=== PATIENT | male | born 1980 | race Caucasian/White ===

== ENCOUNTER 2017-11-10 17:58 | Emergency (ER) | payer MEDICARE, OTHER ==
[~2017-11-10] VITALS: Ht 177.8 cm; Wt 122.5 kg
[~2017-11-10 17:58] MED LIST: CETI10CA PO; CLON1TAB2 PO; DULO60CA6 PO; GEODON; LAMO25TA4 PO; LEVOTHYROXINE; NAPR-243 PO; TRM50T PO
--- OUTSIDE RECORDS SUMMARY | 2017-11-10 18:03 | XMS REPORT | Referral Summary ---
Author Organization Unknown Address Unknown Phone Unavailable Care Team Providers Care Aurist Name Role Phone Abebe Bentley PCP Encounter VC Date(s): 07/13/14 - 07/13/14 [facility], [facility] [address] [place], [place] [address] Discharge Diagnosis: Allergic reaction of correct medicinal substance properly administered Discharge Disposition: Home or Self Care Attending Physician: Kailee Herrera APRN Admitting Physician: Kailee Herrera APRN Vital Signs Most recent to 1 oldest [Reference Range]: Temperature Tympanic 35.6 degC [36.6-38.1 degC] *LOW* (07/13/14 11:03 AM) Peripheral Pulse 82 bpm Rate [60-100 bpm] (07/13/14 11:03 AM) Most recent to 1 oldest [Reference Range]: SpO2 98 % (07/13/14 11:03 AM) Problem List Condition Effective Dates Status Health Status Informant Allergies(Confirmed) Active Bipolar Active disorder(Confirmed) Depression(Confirmed Active ) Thyroid Active disease(Confirmed) GERD Active (gastroesophageal reflux disease)(Confirmed) Hypothyroidism Active (disorder)(Confirmed ) Disabled due to Active Mental health issues(Confirmed) Migraine(Confirmed) Active 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) Seborrheic Active dermatitis of scalp(Confirmed) Tobacco Active patient user(Confirmed) Allergies, Adverse Reactions, Alerts Substance Reaction Severity Status amoxicillin Active cephalexin Active Diflucan Active Latex Pruritus Mild Active penicillin Pruritus Mild Active Medications clobetasol 0.05% topical solution 1 jimmie, Topical, BID, # 50 mL, 2 Refill(s), Pharmacy: [facility] [id number] Start Date: 06/30/14 Status: Ordered clobetasol 0.05% topical solution 1 jimmie, Topical, BID, # 50 mL, 2 Refill(s), Pharmacy: [facility] Start Date: 04/01/14 Status: Ordered Imitrex 50 mg oral tablet 1 tabs, Oral, Daily, as needed for migraine headache, may repeat dose after 2 hours up to a maximum of 200 mg in 24 hours, # 9 tabs, 0 Refill(s) Special Instructions: may repeat dose after 2 hours up to a maximum of 200 mg in 24 hours Start Date: 09/04/13 Status: Ordered LaMICtal 200 mg oral tablet tabs, Oral, Daily, 0 Refill(s) Start Date: 09/04/13 Status: Ordered LamISIL 250 mg oral tablet 1 tabs, Oral, Daily, X 14 days, # 14 tabs, 0 Refill(s), Pharmacy: [facility] [id number], 1 tabs Oral Daily,x14 days Start Date: 07/13/14 Stop Date: 07/27/14 Status: Ordered Lotrimin AF 1% topical cream 1 jimmie, Topical, BID, # 15 g, 0 Refill(s) Start Date: 07/10/14 Stop Date: 07/22/14 Status: Ordered montelukast 10 mg oral tablet See Instructions, TAKE ONE TABLET BY MOUTH ONCE DAILY IN THE EVENING, # 30 tabs , 4 Refill(s), eRx: [facility] [id number], TAKE ONE TABLET BY MOUTH ONCE DAILY IN THE EVENING Special Instructions: TAKE ONE TABLET BY MOUTH ONCE DAILY IN THE EVENING Start Date: 07/09/14 Status: Ordered Nizoral 2% topical shampoo 1 jimmie, Topical, 2x/Wk, # 120 mL, 1 Refill(s), Pharmacy: [facility] Start Date: 02/13/14 Status: Ordered nystatin-triamcinolone 100,000 units/g-0.1% topical cream 1 jimmie, Topical, TID, # 30 g, 0 Refill(s), Pharmacy: [facility] [id number] Start Date: 06/30/14 Status: Ordered omeprazole 40 mg oral delayed release capsule See Instructions, TAKE ONE CAPSULE BEFORE BREAKFAST DAILY FOR STOMACH, # 30 caps , 5 Refill(s), Pharmacy: [facility] [address], TAKE ONE CAPSULE BEFORE BREAKFAST DAILY FOR STOMACH Special Instructions: TAKE ONE CAPSULE BEFORE BREAKFAST DAILY FOR STOMACH Start Date: 05/13/14 Status: Ordered Omnaris 50 mcg/inh nasal spray 2 sprays, Nasal, Daily, # 12.5 g, 0 Refill(s) Start Date: 09/04/13 Status: Ordered prazosin 1 mg oral capsule 1 caps, Oral, TID, # 270 caps, 0 Refill(s) Start Date: 09/04/13 Status: Ordered Pristiq 100 mg oral tablet, extended release 1 tabs, Oral, Daily, # 30 tabs, 0 Refill(s) Start Date: 09/04/13 Status: Ordered Topamax 50 mg oral tablet See Instructions, TAKE ONE TABLET BY MOUTH DAILY, # 60 tabs, 1 Refill(s), Pharmacy: [facility]5, TAKE ONE TABLET BY MOUTH DAILY Special Instructions: TAKE ONE TABLET BY MOUTH DAILY Start Date: 06/18/14 Status: Ordered Results No data available for this section Immunizations No data available for this section Procedures Procedure Date Related Diagnosis Body Site RT. Inguinal Hernia repair 2011 Cholecystectomy 2009 Social History Social History Type Response Smoking Status Current every day smoker; Type: E-Cigarette Assessment and Plan Extracted from: Title: Office Visit Note Author: Kailee Herrera CARDIAC NURSE Date: 07/13/14 Assessment/Plan 1.Allergic reaction of correct medicinal substance properly administered Discussed with Dr. Bentley who confirmed that the new rash is a medicine reaction. He will take Lamisil daily for two weeks and will also take a medrol dose pack and can continue Benadryl. 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 I told him and his to check with the vet about the possibility of animals passing this fungus to them. Ordered: Office Visit Level 4 Est 62465 Orders: terbinafine, 1 tabs, Oral, Daily, X 14 days, # 14 tabs, 0 Refill(s), Pharmacy: [facility] 7489, 1 tabs Oral Daily,x14 days
--- OUTSIDE RECORDS SUMMARY | 2017-11-10 18:03 | XMS REPORT | Referral Summary ---
Author Author [facility] Organization [facility] Address Unknown Phone Unavailable Care Team Providers Care Nuclear Equipment Design Engineer Name Role Phone Abebe Bentley PCP Encounter [facility] [id number] Date(s): 09/12/14 - 09/12/14 [facility] [address] [place], [place] [address] Discharge Diagnosis: AP (abdominal pain) Final: ABDOMINAL PAIN, OTHER SPECIFIED SITE; MULTIPLE SITES Final: CALCULUS OF KIDNEY Final: TOBACCO USE DISORDER Discharge Disposition: 01-Home or Self Care Attending Physician: Anu Dumont MD Admitting Physician: Anu Dumont MD Vital Signs Most recent to 1 oldest [Reference Range]: Temperature Oral 36.9 degC [35.8-37.3 degC] (09/12/14 8:02 AM) Peripheral Pulse 96 bpm Rate [60-100 bpm] (09/12/14 11:05 AM) Respiratory Rate 16 br/min [14-20 br/min] (09/12/14 11:05 AM) Blood Pressure 128/3 mmHg [90-140/60-90 mmHg] (09/12/14 11:05 AM) SpO2 98 % (09/12/14 11:05 AM) Problem List Condition Effective Dates Status Health Status Informant Allergies(Confirmed) Active Bipolar Active disorder(Confirmed) Depression(Confirmed Active ) Thyroid Active disease(Confirmed) GERD Active (gastroesophageal reflux disease)(Confirmed) Hypothyroidism Active (disorder)(Confirmed ) Disabled due to Active Mental health issues(Confirmed) Migraine(Confirmed) Active Obesity(Confirmed) Active patient 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) Seborrheic Active dermatitis of scalp(Confirmed) Tobacco Active patient user(Confirmed) Allergies, Adverse Reactions, Alerts Substance Reaction Severity Status amoxicillin Active cephalexin Active Diflucan Active Latex Pruritus Mild Active penicillin Pruritus Mild Active Medications Benadryl 0 Refill(s) Start Date: 09/12/14 Status: Ordered clobetasol 0.05% topical solution 1 jimmie, Topical, BID, # 50 mL, 2 Refill(s), Pharmacy: [facility] [id number] Start Date: 06/30/14 Status: Ordered clobetasol 0.05% topical solution 1 jimmie, Topical, BID, # 50 mL, 2 Refill(s), Pharmacy: [facility] Start Date: 04/01/14 Status: Ordered LaMICtal 200 mg oral tablet tabs, Oral, Daily, 0 Refill(s) Start Date: 09/04/13 Status: Ordered montelukast 10 mg oral tablet See Instructions, TAKE ONE TABLET BY MOUTH ONCE DAILY IN THE EVENING, # 30 tabs , 2 Refill(s), eRx: [facility] [id number], TAKE ONE TABLET BY MOUTH ONCE DAILY IN THE EVENING Start Date: 11/16/14 Status: Ordered Nizoral 2% topical shampoo 1 jimmie, Topical, 2x/Wk, # 120 mL, 1 Refill(s), Pharmacy: [facility] Start Date: 02/13/14 Status: Ordered omeprazole 40 mg oral delayed release capsule See Instructions, TAKE ONE CAPSULE BY MOUTH ONCE DAILY BEFORE BREAKFAST FOR STOMACH, # 30 unknown unit, 2 Refill(s), eRx: [facility] [id number] , TAKE ONE CAPSULE BY MOUTH ONCE DAILY BEFORE BREAKFAST FOR STOMACH Start Date: 10/27/14 Status: Ordered Pepcid 20 mg oral tablet 20 mg 1 tabs, Oral, BID, # 60 tabs, 0 Refill(s) Start Date: 09/12/14 Status: Ordered prazosin 1 mg oral capsule 1 caps, Oral, TID, # 270 caps, 0 Refill(s) Start Date: 09/04/13 Status: Ordered Pristiq 100 mg oral tablet, extended release 1 tabs, Oral, Daily, # 30 tabs, 0 Refill(s) Start Date: 09/04/13 Status: Ordered topiramate 50 mg oral tablet See Instructions, TAKE ONE TABLET BY MOUTH TWICE DAILY, # 60 tabs, 2 Refill(s), eRx: [facility] [id number], TAKE ONE TABLET BY MOUTH TWICE DAILY Start Date: 11/02/14 Status: Ordered Results Hematology Most recent to 1 oldest [Reference Range]: WBC [4.8-10.8 8.5 10*3/uL 10*3/uL] (09/12/14 8:49 AM) RBC [4.60-6.20 5.09 10*6/uL 10*6/uL] (09/12/14 8:49 AM) Hgb [14.0-18.0 14.8 gm/dL gm/dL] (09/12/14 8:49 AM) Hct [42.0-52.0 %] 43.6 % (09/12/14 8:49 AM) MCV [82.0-99.0 fL] 85.7 fL (09/12/14 8:49 AM) MCH [27.0-32.0 pg] 29.1 pg (09/12/14 8:49 AM) MCHC [32.0-36.0 33.9 gm/dL gm/dL] (09/12/14 8:49 AM) RDW [11.5-14.5 %] 13.6 % (09/12/14 8:49 AM) Platelet [150-400 212 10*3/uL 10*3/uL] (09/12/14 8:49 AM) MPV [9.4-12.3 fL] 10.5 fL (09/12/14 8:49 AM) Immature 0.2 % Granulocytes (09/12/14 8:49 AM) [0.0-1.0 %] Neutrophils [51-75 51 % %] (09/12/14 8:49 AM) Lymphocytes [20-46 41 % %] (09/12/14 8:49 AM) Monocytes [4-11 %] 7 % (09/12/14 8:49 AM) Eosinophils [0-4 %] 1 % (09/12/14 8:49 AM) Basophils [0-2 %] 0 % (09/12/14 8:49 AM) Neutro Absolute 4.35 10*3 [1.90-7.00 10*3] (09/12/14 8:49 AM) Lymph Absolute 3.45 10*3 [0.80-3.30 10*3] *HI* (09/12/14 8:49 AM) Runnels Absolute 0.57 10*3 [0.30-1.00 10*3] (09/12/14 8:49 AM) Eos Absolute 0.08 10*3 [0.00-0.50 10*3] (09/12/14 8:49 AM) Baso Absolute 0.02 10*3 [0.00-0.20 10*3] (09/12/14 8:49 AM) Chemistry Most recent to 1 oldest [Reference Range]: Sodium Lvl [136-144 136 mEq/L mEq/L] (09/12/14 8:49 AM) Potassium Lvl 3.4 mEq/L [3.6-5.1 mEq/L] *LOW* (09/12/14 8:49 AM) Chloride [99-109 106 mEq/L mEq/L] (09/12/14 8:49 AM) CO2 [22-32 mEq/L] 21 mEq/L *LOW* (09/12/14 8:49 AM) AGAP [3-20] 9 (09/12/14 8:49 AM) BUN [4-20 mg/dL] 11 mg/dL (09/12/14 8:49 AM) Glucose Lvl [70-100 96 mg/dL mg/dL] (09/12/14 8:49 AM) Creatinine Lvl 1.15 mg/dL [0.64-1.27 mg/dL] (09/12/14 8:49 AM) eGFR [>60] >60 1 (09/12/14 8:49 AM) Calcium Lvl 9.4 mg/dL [8.6-10.0 mg/dL] (09/12/14 8:49 AM) Albumin Lvl [3.5-4.8 4.7 gm/dL gm/dL] (09/12/14 8:49 AM) Total Protein 7.7 gm/dL [6.1-7.9 gm/dL] (09/12/14 8:49 AM) Globulin [1.9-4.3 3.0 gm/dL gm/dL] (09/12/14 8:49 AM) ALT [17-63 U/L] 24 U/L (09/12/14 8:49 AM) AST [15-41 U/L] 26 U/L (09/12/14 8:49 AM) Alk Phos [26-104 72 U/L U/L] (09/12/14 8:49 AM) Bili Total [0.2-1.2 0.4 mg/dL 2 mg/dL] (09/12/14 8:49 AM) Lipase Lvl [8-48 30 U/L U/L] (09/12/14 8:49 AM) 1Result Comment: Multiply eGFR results by 1.21 for race. 2Result Comment: Naproxen, specifically the metabolite O-desmethylnaproxen, may cause spurious elevation in Total Bilirubin levels. Urinalysis Most recent to 1 oldest [Reference Range]: UA Color Lt Yellow (09/12/14 8:49 AM) UA Appear Clear (09/12/14 8:49 AM) UA pH [5.0-8.0] 7.0 (09/12/14 8:49 AM) UA Leuk Est Negative [Negative] (09/12/14 8:49 AM) UA Nitrite Negative [Negative] (09/12/14 8:49 AM) UA Protein Negative [Negative] (09/12/14 8:49 AM) UA Glucose Negative [Negative] (09/12/14 8:49 AM) UA Ketones Negative [Negative] (09/12/14 8:49 AM) UA Urobilinogen Negative [<1.0] (09/12/14 8:49 AM) UA Bili [Negative] Negative (09/12/14 8:49 AM) UA Blood [Negative] Negative (09/12/14 8:49 AM) UA Spec Grav 1.006 [1.003-1.030] (09/12/14 8:49 AM) Type Clean Catch (09/12/14 8:49 AM) Immunizations No data available for this section Procedures Procedure Date Related Diagnosis Body Site RT. Inguinal Hernia repair 2011 Cholecystectomy 2008 Social History Social History Type Response Smoking Status Current every day smoker; Type: E-Cigarette Assessment and Plan No data available for this section
--- OUTSIDE RECORDS SUMMARY | 2017-11-10 18:03 | XMS REPORT | Referral Summary ---
Author Author [facility] Organization [facility] Address Unknown Phone Unavailable Care Team Providers Care Environmental Services Assistant Name Role Phone Abebe Bentley PCP Encounter VC Date(s): 08/25/14 - 08/25/14 [facility] [address] [place] [address] [facility] Discharge Diagnosis: Pain of left calf Discharge Disposition: 01-Home or Self Care Attending Physician: Priya Ramirez Attending Physician: Provider, Immediate Care Admitting Physician: Provider, Immediate Care Vital Signs Most recent to 1 oldest [Reference Range]: Temperature Oral 36.8 degC [35.8-37.3 degC] (08/25/14 11:53 AM) Peripheral Pulse 91 bpm Rate [60-100 bpm] (08/25/14 11:53 AM) Blood Pressure 124/77 mmHg [90-140/60-90 mmHg] (08/25/14 11:53 AM) SpO2 96 % (08/25/14 11:53 AM) Problem List Condition Effective Dates Status Health Status Informant Allergies(Confirmed) Active Bipolar Active disorder(Confirmed) Depression(Confirmed Active ) Thyroid Active disease(Confirmed) GERD Active (gastroesophageal reflux disease)(Confirmed) Hypothyroidism Active (disorder)(Confirmed ) Disabled due to Active Mental health issues(Confirmed) Migraine(Confirmed) Active Obesity(Confirmed) Active patient 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) Seborrheic Active dermatitis of scalp(Confirmed) Tobacco Active patient user(Confirmed) Allergies, Adverse Reactions, Alerts Substance Reaction Severity Status amoxicillin Active cephalexin Active Diflucan Active Latex Pruritus Mild Active penicillin Pruritus Mild Active Medications Benadryl 0 Refill(s) Start Date: 09/12/14 Status: Ordered clobetasol 0.05% topical solution 1 jimmie, Topical, BID, # 50 mL, 2 Refill(s), Pharmacy: [facility] [id number] Start Date: 06/30/14 Status: Ordered clobetasol 0.05% topical solution 1 jimmie, Topical, BID, # 50 mL, 2 Refill(s), Pharmacy: [facility] Start Date: 04/01/14 Status: Ordered LaMICtal 200 mg oral tablet tabs, Oral, Daily, 0 Refill(s) Start Date: 09/04/13 Status: Ordered montelukast 10 mg oral tablet See Instructions, TAKE ONE TABLET BY MOUTH ONCE DAILY IN THE EVENING, # 30 tabs , 2 Refill(s), eRx: [facility] [address], TAKE ONE TABLET BY MOUTH ONCE DAILY IN THE EVENING Start Date: 11/16/14 Status: Ordered Nizoral 2% topical shampoo 1 jimmie, Topical, 2x/Wk, # 120 mL, 1 Refill(s), Pharmacy: [facility] Start Date: 02/13/14 Status: Ordered omeprazole 40 mg oral delayed release capsule See Instructions, TAKE ONE CAPSULE BY MOUTH ONCE DAILY BEFORE BREAKFAST FOR STOMACH, # 30 unknown unit, 2 Refill(s), eRx: [facility] [address] , TAKE ONE CAPSULE BY MOUTH ONCE [...] DAILY, # 60 tabs, 2 Refill(s), eRx: [facility] [address], TAKE ONE TABLET BY MOUTH TWICE DAILY Start Date: 11/02/14 Status: Ordered Results No data available for this section Immunizations No data available for this section Procedures Procedure Date Related Diagnosis Body Site RT. Inguinal Hernia repair 2012 Cholecystectomy 2009 Social History Social History Type Response Smoking Status Current every day smoker; Type: E-Cigarette Assessment and Plan Extracted from: Title: Office Visit Note Author: Priya Ramirez Date: 08/25/14 Assessment/Plan 1.Pain of left calf Instructed patient on medication, use, common side effects, and administration. Discussed proper OTC medication, including Tylenol or ibuprofen, for symptomatic relief. Discussed use of therapeutic techniques: PRICEMM therapy (protection, relative rest, ice, compression, elevation, medications, modalities) for symptomatic relief. Instructed patient if symptoms worsen or new symptoms arise to seek medical attention here or at the ER. If no improvement of symptoms follow up with PCP in 2-3 days. Patient voiced understanding and agreed with treatment plan. Patient dismissed in stable condition. Ordered: Office Visit Level 3 Est 80197 Orders: cyclobenzaprine, 5 mg 1 tabs, Oral, TID, X 7 days, # 21 tabs, 0 Refill (s), Pharmacy: [facility], 1 tabs Oral TID,x7 days predniSONE, 30 mg 3 tabs, Oral, Daily, X 5 days, # 15 tabs, 0 Refill(s), Pharmacy: [facility], 3 tabs Oral Daily,x5 days
--- OUTSIDE RECORDS SUMMARY | 2017-11-10 18:04 | XMS REPORT ---
Author Author RADHA ANGELES Organization [facility] Address [address] [place] [address] Care Team Providers Care Manager Global Communications Name Role Phone RADHA ANGELES Unavailable PROBLEMS Type Condition ICD9-CM Code NEW96-GU Code Onset Dates Condition Status SNOMED Code Problem Bipolar disorder, current episode mixed, mild F31.61 Active 012702240 Problem PTSD (post-traumatic stress disorder) F43.10 Active 16463984 ALLERGIES No Information ENCOUNTERS Encounter Location Date Diagnosis [place] [id number] [place] [phone] Sep, [place] [id number] [place] [address] Aug, Bipolar disorder, current episode mixed, mild F31.61 and PTSD (post-traumatic stress disorder) F43.10 [place] [address] [place] [id number] [place] [address] Jun, Bipolar disorder, current episode mixed, mild F31.61 and PTSD (post-traumatic stress disorder) F43.10 [place] [address] [address] [place] [address] Jun, Bipolar disorder, current episode mixed, mild F31.61 and PTSD (post-traumatic stress disorder) F43.10 [place] [address] [place] [address] Mar, Bipolar disorder, current episode mixed, mild F31.61 and PTSD (post-traumatic stress disorder) F43.10 [place] [address] [address] [place] [address] Mar, Bipolar disorder, current episode mixed, mild F31.61 and PTSD (post-traumatic stress disorder) F43.10 [facility] [address] [facility] [id number] [address] Mar, [facility] [address] [address] Mar, Bipolar disorder, current episode mixed, mild F31.61 and PTSD (post-traumatic stress disorder) F43.10 [facility] [address] [address] Dec, [facility] [address] [address] Dec, [facility] [address] [address] Dec, IMMUNIZATIONS No Known Immunizations SOCIAL HISTORY Never Assessed REASON FOR VISIT Follow-up Anger/Mood PLAN OF CARE Activity Details Follow Up prn Reason: Follow-up VITAL SIGNS MEDICATIONS Unknown Medications RESULTS No Results PROCEDURES Procedure Date Ordered Result Body Site [facility] VISIT MENTAL HEALTH ESTAB PT June 28, 2017 Psychotherapy, patient &/family, 45 minutes, established patient June 28, 2017 visit needs to be added to the same day medical June 28, 2017 INSTRUCTIONS MEDICATIONS ADMINISTERED No Known Medications MEDICAL (GENERAL) HISTORY Type Description Date Medical History several concussions, last one 2014 Medical History obesity Medical History hypothyroidism Medical History chronic pain Surgical History cholecystectomy Surgical History tonsillectomy Surgical History wisdom teeth extraction Surgical History hernia repair Surgical History left knee arthroscopy Hospitalization History [facility] for depression, SI 2001
--- OUTSIDE RECORDS SUMMARY | 2017-11-10 18:04 | XMS REPORT ---
Author Author PAULINA ILENE Organization [facility] Address [address] [place] [address] Care Team Providers Care End Finder Forming Department Name Role Phone VITALIYMARY KATE ILENE Unavailable PROBLEMS Type Condition ICD9-CM Code [id number] Code Onset Dates Condition Status SNOMED Code Problem Bipolar disorder, current episode mixed, mild F31.61 Active 940276983 Problem PTSD (post-traumatic stress disorder) F43.10 Active 33310657 ALLERGIES No Information ENCOUNTERS Encounter Location Date Diagnosis [facility] [address] [place] [id number] [place] [address] Sep, [facility] [address] [place] [id number] [place] [address] Aug, Bipolar disorder, current episode mixed, mild F31.61 and PTSD (post-traumatic stress disorder) F43.10 [facility] [address] [place] [id number] [place] [address] Jun, Bipolar disorder, current episode mixed, mild F31.61 and PTSD (post-traumatic stress disorder) F43.10 [place] [address] [place] [address] Jun, Bipolar disorder, current episode mixed, mild F31.61 and PTSD (post-traumatic stress disorder) F43.10 [facility] [address] [place] [address] Mar, Bipolar disorder, current episode mixed, mild F31.61 and PTSD (post-traumatic stress disorder) F43.10 [place] [address] [address] [place] [address] Mar, Bipolar disorder, current episode mixed, mild F31.61 and PTSD (post-traumatic stress disorder) F43.10 [place] [address] [place] [id number] [phone] Mar, [place] [address] [address] [phone] Mar, Bipolar disorder, current episode mixed, mild F31.61 and PTSD (post-traumatic stress disorder) F43.10 [place] [address] [address] Dec, [place] [address] [place] [id number] [address] Dec, [place] [address] [address] [place] [address] Dec, IMMUNIZATIONS No Known Immunizations SOCIAL HISTORY Never Assessed REASON FOR VISIT YESENIA Longo MA PLAN OF CARE Activity Details Follow Up 3 Months, prn Reason: VITAL SIGNS Weight 281 lbs 2017-06-28 Heart Rate 96 bpm 2017-06-28 Respiratory Rate 20 2017-06-28 Blood pressure systolic 118 mmHg 2017-06-28 Blood pressure diastolic 76 mmHg 2017-06-28 MEDICATIONS Medication Instructions Dosage Frequency Start Date End Date Duration Status Abilify 5 MG Orally Once a day 1 tablet 24h Mar, 30 days Not- Taking Omeprazole 40 MG Orally Once a day 1 capsule 24h Active Baclofen 10 mg Orally Once a day 1 tablet with food or milk 24h Active Levothyroxine Sodium 112 MCG Orally Once a day 1 tablet on an empty stomach in the morning 24h Not-Taking Lamictal 150 MG Orally Once a day 2 tablet 24h 30 days Active Imitrex 50 MG Orally Twice a day 1 tablet as needed 12h Active HydrOXYzine HCl 25 MG TAKE ONE TABLET BY MOUTH THREE TIMES DAILY NEEDED FOR ANXIETY 30 Not-Taking Ibuprofen 800 MG Orally Three times a day 1 tablet with food or milk as needed 8h Active Restoril 15 MG Orally Once a day 1 capsule at bedtime as needed 24h Mar Not-Taking Levocetirizine Dihydrochloride 5 MG Orally Once a day 1 tablet in the evening 24h Not-Taking Synthroid 150 MG Orally Once a day 1 tablet on an empty stomach in the morning 24h Active Singulair 10 MG Orally Once a day 1 tablet in the evening 24h Not- Taking Duloxetine HCl 60 MG Orally Once a day 1 capsule 24h 30 days Active RESULTS No Results PROCEDURES Procedure Date Ordered Result Body Site [facility] VISIT ESTABLISHED PATIENT June 28, 2017 [facility] Visit needs to be added with another visit on the same day June 28, 2017 INSTRUCTIONS MEDICATIONS ADMINISTERED No Known Medications MEDICAL (GENERAL) HISTORY Type Description Date Medical History several concussions, last one 2014 Medical History obesity Medical History hypothyroidism Medical History chronic pain Surgical History cholecystectomy Surgical History tonsillectomy Surgical History wisdom teeth extraction Surgical History hernia repair Surgical History left knee arthroscopy Hospitalization History [facility] for depression, SI 2001
--- OUTSIDE RECORDS SUMMARY | 2017-11-10 18:04 | XMS REPORT ---
Author Author PAULINA ILENE Organization [facility] Address [address] [place] [address] Care Team Providers Care Nursing Informatics Clinical Analyst Name Role Phone VITALIYLISA HARTMANNYLA Unavailable PROBLEMS Type Condition ICD9-CM Code DAT08-WH Code Onset Dates Condition Status SNOMED Code Problem Bipolar disorder, current episode mixed, mild F31.61 Active 906717928 Problem PTSD (post-traumatic stress disorder) F43.10 Active 46323509 ALLERGIES No Information ENCOUNTERS Encounter Location Date Diagnosis [facility] [id number] [place] [phone] Sep, [facility] [id number] [place] [id number] Aug, [facility] [id number] [place] [phone] Jun, Bipolar disorder, current episode mixed, mild F31.61 and PTSD (post-traumatic stress disorder) F43.10 [facility] [id number] [place] [address] Jun, Bipolar disorder, current episode mixed, mild F31.61 and PTSD (post-traumatic stress disorder) F43.10 [facility] [id number] [place] [phone] Mar, Bipolar disorder, current episode mixed, mild F31.61 and PTSD (post-traumatic stress disorder) F43.10 [facility] [id number] [place] [address] Mar, Bipolar disorder, current episode mixed, mild F31.61 and PTSD (post-traumatic stress disorder) F43.10 [facility] [id number] [place] [phone] Mar, [facility] [address] [facility] [id number] [place] [address] Mar, Bipolar disorder, current episode mixed, mild F31.61 and PTSD (post-traumatic stress disorder) F43.10 [facility] [address] [facility] [id number] [place] [address] Dec, [place] [id number], [place] [address] Dec, [facility] [address] [facility] [id number] [place] [address] Dec, IMMUNIZATIONS No Known Immunizations SOCIAL HISTORY Never Assessed REASON FOR VISIT med refill PLAN OF CARE VITAL SIGNS MEDICATIONS Medication Instructions Dosage Frequency Start Date End Date Duration Status Lamictal 150 MG Orally Once a day 2 tablet 24h 30 days Active RESULTS No Results PROCEDURES No Known procedures INSTRUCTIONS MEDICATIONS ADMINISTERED No Known Medications MEDICAL (GENERAL) HISTORY Type Description Date Medical History several concussions, last one 2014 Medical History obesity Medical History hypothyroidism Medical History chronic pain Surgical History cholecystectomy Surgical History tonsillectomy Surgical History wisdom teeth extraction Surgical History hernia repair Surgical History left knee arthroscopy Hospitalization History [facility] for depression, SI 2001
--- OUTSIDE RECORDS SUMMARY | 2017-11-10 18:04 | XMS REPORT ---
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 Name Role Phone VITALIYMAXIM HARTMANNA Unavailable PROBLEMS Type Condition ICD9-CM Code UVE80-ZF Code Onset Dates Condition Status SNOMED Code Problem Bipolar disorder, current episode mixed, mild F31.61 Active [id number] Problem PTSD (post-traumatic stress disorder) F43.10 Active [id number] ALLERGIES Substance Reaction Event Type Date Status Penicillin V Potassium hives Drug Allergy Mar, Active Geodon vertigo Drug Allergy Mar, Active Diflucan hives Drug Allergy Mar, Active ENCOUNTERS Encounter Location Date Diagnosis [facility] [id number] [place] [phone] Sep, [facility] [id number] [place] [phone] Aug, [facility] [id number] [place] [address] 098[address] Aug, Bipolar disorder, current episode mixed, mild F31.61 and PTSD (post-traumatic stress disorder) F43.10 [facility] [id number] [place] [address] Jun, Bipolar disorder, current episode mixed, mild F31.61 and PTSD (post-traumatic stress disorder) F43.10 [facility] [id number] [place] [address]- [address]27 Jun, Bipolar disorder, current episode mixed, mild F31.61 and PTSD (post-traumatic stress disorder) F43.10 [facility] [id number] [place] [address]- [address] Mar, Bipolar disorder, current episode mixed, mild F31.61 and PTSD (post-traumatic stress disorder) F43.10 [address] [address], [place] [address] Mar, Bipolar disorder, current episode mixed, mild F31.61 and PTSD (post-traumatic stress disorder) F43.10 [place] [address], [place] [address] Mar, [place] [id number] [place], [place] [address] Mar, Bipolar disorder, current episode mixed, mild F31.61 and PTSD (post-traumatic stress disorder) F43.10 [place] [id number] [place], [place] [phone] Dec, [place] [id number] [place] [phone]- [address] Dec, [place] [id number] [place] [phone] Dec, IMMUNIZATIONS No Known Immunizations SOCIAL HISTORY Never Assessed REASON FOR VISIT BH intake----Sophie PLAN OF CARE Activity Details Follow Up 4 Weeks Reason: VITAL SIGNS Weight 275 lbs 2017-03-27 Heart Rate 110 bpm 2017-03-27 Respiratory Rate 20 2017-03-27 Blood pressure systolic 142 mmHg 2017-03-27 Blood pressure diastolic 106 mmHg 2017-03-27 MEDICATIONS Medication Instructions Dosage Frequency Start Date End Date Duration Status Levothyroxine Sodium 112 MCG Orally Once a day 1 tablet on an empty stomach in the morning 24h Active Lamictal 150 MG Orally Once a day 2 tablet 24h 30 days Active Omeprazole 40 MG Orally Once a day 1 capsule 24h Active Ibuprofen 800 MG Orally Three times a day 1 tablet with food or milk as needed 8h Active Levocetirizine Dihydrochloride 5 MG Orally Once a day 1 tablet in the evening 24h Active Abilify 5 MG Orally Once a day 1 tablet 24h Mar, 30 day(s) Active HydrOXYzine HCl 25 MG Orally three times a day as needed for anxiety 1 tablet Mar, 30 day(s) Active Duloxetine HCl 60 MG Orally Once a day 1 capsule 24h 30 days Active Duloxetine HCl 30 MG Orally Once a day 1 capsule 24h 30 days Active Restoril 15 MG Orally Once a day 1 capsule at bedtime as needed 24h Mar 30 days Active Baclofen 10 mg Orally Once a day 1 tablet with food or milk 24h Active Imitrex 50 MG Orally Twice a day 1 tablet as needed 12h Active Singulair 10 MG Orally Once a day 1 tablet in the evening 24h Active RESULTS No Results PROCEDURES Procedure Date Ordered Result Body Site [facility] VISIT ESTABLISHED PATIENT Mar 27, 2017 INSTRUCTIONS MEDICATIONS ADMINISTERED No Known Medications MEDICAL (GENERAL) HISTORY Type Description Date Medical History several concussions, last one 2014 Medical History obesity Medical History hypothyroidism Medical History chronic pain Surgical History cholecystectomy Surgical History tonsillectomy Surgical History wisdom teeth extraction Surgical History hernia repair Surgical History left knee arthroscopy Hospitalization History [facility] for depression, SI 2001
--- OUTSIDE RECORDS SUMMARY | 2017-11-10 18:04 | XMS REPORT | Referral Summary ---
Author Organization Unknown Address Unknown Phone Unavailable Care Team Providers Care Tassel Snipper Name Role Phone Abebe Bentley PCP Encounter VC Date(s): 07/10/14 - 07/10/14 [facility] [address] [place] [address] Discharge Diagnosis: Adverse reaction to antifungal drug Discharge Disposition: Home or Self Care Attending Physician: Nick Perez MD Admitting Physician: Nick Perez MD Vital Signs Most recent to 1 oldest [Reference Range]: Temperature Temporal 35.8 degC Artery [36.3-37.8 *LOW* degC] (07/10/14 8:25 AM) Peripheral Pulse 95 bpm Rate [60-100 bpm] (07/10/14 8:25 AM) Respiratory Rate 18 br/min [14-20 br/min] (07/10/14 8:25 AM) Blood Pressure 130/89 mmHg [90-140/60-90 mmHg] (07/10/14 8:25 AM) Most recent to 1 oldest [Reference Range]: SpO2 99 % (07/10/14 8:25 AM) Problem List Condition Effective Dates Status Health Status Informant Allergies(Confirmed) Active Bipolar Active disorder(Confirmed) Depression(Confirmed Active ) Thyroid Active disease(Confirmed) GERD Active (gastroesophageal reflux disease)(Confirmed) Hypothyroidism Active (disorder)(Confirmed ) Disabled due to Active Mental health issues(Confirmed) Migraine(Confirmed) Active 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) Seborrheic Active dermatitis of scalp(Confirmed) Tobacco Active patient user(Confirmed) Allergies, Adverse Reactions, Alerts Substance Reaction Severity Status amoxicillin Active cephalexin Active Latex Pruritus Mild Active penicillin Pruritus Mild Active Medications clobetasol 0.05% topical solution 1 jimmie, Topical, BID, # 50 mL, 2 Refill(s), Pharmacy: [place] [address] Start Date: 06/30/14 Status: Ordered clobetasol 0.05% topical solution 1 jimmie, Topical, BID, # 50 mL, 2 Refill(s), Pharmacy: [facility] Start Date: 04/01/14 Status: Ordered Diflucan 150 mg oral tablet 1 tabs, Oral, qWeek, # 4 tabs, 0 Refill(s), Pharmacy: [place] [address], 1 tabs Oral qWeek Start Date: 06/30/14 Status: Ordered Imitrex 50 mg oral tablet [...] 0 Refill(s) Start Date: 09/04/13 Status: Ordered Lotrimin AF 1% topical cream 1 jimmie, Topical, BID, # 15 g, 0 Refill(s) Start Date: 07/10/14 Stop Date: 07/22/14 Status: Ordered montelukast 10 mg oral tablet See Instructions, TAKE ONE TABLET BY MOUTH ONCE DAILY IN THE EVENING, # 30 tabs , 4 Refill(s), eRx: [place] [address], TAKE ONE TABLET BY MOUTH ONCE DAILY IN THE EVENING Special Instructions: TAKE ONE TABLET BY MOUTH ONCE DAILY IN THE EVENING Start Date: 07/09/14 Status: Ordered Nizoral 2% topical shampoo 1 jimmie, Topical, 2x/Wk, # 120 mL, 1 Refill(s), Pharmacy: [facility] Start Date: 02/13/14 Status: Ordered nystatin-triamcinolone 100,000 units/g-0.1% topical cream 1 jimmie, Topical, TID, # 30 g, 0 Refill(s), Pharmacy: [place] [address] Start Date: 06/30/14 Status: Ordered omeprazole 40 mg oral delayed release capsule See Instructions, TAKE ONE CAPSULE BEFORE BREAKFAST DAILY FOR STOMACH, # 30 caps , 5 Refill(s), Pharmacy: [place] [address], TAKE ONE CAPSULE BEFORE BREAKFAST DAILY FOR [...] DAILY, # 60 tabs, 1 Refill(s), Pharmacy: [facility] 3[facility], TAKE ONE TABLET BY MOUTH DAILY Special Instructions: TAKE ONE TABLET BY MOUTH DAILY Start Date: 06/18/14 Status: Ordered Results No data available for this section Immunizations No data available for this section Procedures Procedure Date Related Diagnosis Body Site RT. Inguinal Hernia repair 2012 Cholecystectomy 2008 Social History Social History Type Response Smoking Status Current every day smoker; Type: E-Cigarette Assessment and Plan No data available for this section
--- OUTSIDE RECORDS SUMMARY | 2017-11-10 18:05 | XMS REPORT | Continuity of Care Document ---
Author Author [facility] Organization [facility] Address Unknown Phone Unavailable Allergies Active Description Code Type Severity Reaction Onset Reported/Identified Relationship to Patient Clinical Status Yes Latex Drug Allergy Mild Pruritus 10/23/2011 Yes Penicillins Drug Allergy Mild Pruritus 10/23/2011 Yes amoxicillin NKMA N/A N/A 07/24/2013 Yes cephalexin NKMA N/A N/A 07/24/2013 Yes Latex NKMA Mild Pruritus 07/24/2013 Yes penicillin NKMA Mild Pruritus 07/24/2013 Yes amoxicillin NKMA N/A N/A 07/24/2013 Yes cephalexin NKMA N/A N/A 07/24/2013 Yes Latex NKMA Mild Pruritus 07/24/2013 Yes penicillin NKMA Mild Pruritus 07/24/2013 Yes Diflucan NKMA N/A N/A 07/13/2014 Yes Diflucan NKMA N/A N/A 07/13/2014 Medications There is no data. Problems Date Dx Coded Attending Type Code Diagnosis Diagnosed By 04/04/2012 German Grimaldo MD Final 244.9 HYPOTHYROIDISM NOS 04/04/2012 German Grimaldo MD Final 305.1 TOBACCO USE DISORDER 04/04/2012 German Grimaldo MD Final 309.81 POSTTRAUMATIC STRESS DIS 04/04/2012 German Grimaldo MD Final 311 DEPRESSIVE DISORDER NEC 04/04/2012 German Grimalod MD Final 724.5 BACKACHE NOS 04/04/2012 eGrman Grimaldo MD Final 786.50 CHEST PAIN NOS 03/15/2013 Michael Carbajal DO Final 244.9 HYPOTHYROIDISM NOS 03/15/2013 Michael Carbajal DO Final 382.9 OTITIS MEDIA NOS 03/15/2013 Michael Carbajal DO Admitting 388.70 OTALGIA NOS 03/24/2013 Alexey Vizcarra MD Final 296.80 BIPOLAR DISORDER NOS 03/24/2013 Alexey Vizcarra MD Final 305.1 TOBACCO USE DISORDER 03/24/2013 Alexey Vizcarra MD Final 309.81 POSTTRAUMATIC STRESS DIS 03/24/2013 Alexey Vizcarra MD Final 380.10 INF OTITIS EXTERNA NOS 03/24/2013 Alexey Vizcarra MD Admitting 388.70 OTALGIA NOS 09/14/2014 Anu Dumont MD Final 305.1 TOBACCO USE DISORDER 09/14/2014 Anu Dumont MD Final 592.0 CALCULUS OF KIDNEY 09/14/2014 Anu Dumont MD Reason 789.09 ABDOMINAL PAIN, OTHER SPECIFIED SITE; MULTIPLE SITES Procedures There is no data. Results Test Result Range HEMOGLOBIN - 12/11/11 08:54 MEAN CELL VOLUME 86.5 fl 80.0-100.0 HEMOGLOBIN 14.2 gm/dL 14.0-18.0 METABOLIC PANEL, BASIC - 12/11/11 08:54 POTASSIUM 3.7 mmol/L 3.5-5.3 EST GFR (MDRD) > 60 mL/min > 59 ANION GAP 10 mmol/L 5-15 EST CrCl (CG) > 60 mL/min > 59 GLUCOSE 122 mg/dL 70-99 CALCIUM 9.1 mg/dL 8.5-10.1 BLOOD UREA NITROGEN 13 mg/dL 7-20 CREATININE 1.2 mg/dL 0.8-1.3 SODIUM 141 mmol/L 135-148 CHLORIDE 106 mmol/L 98-110 CARBON DIOXIDE 25 mmol/L 21-32 Encounters ACCT No. Visit Date/Time Discharge Status Pt. Type Provider Facility Loc./Unit Complaint [id number] 09/12/2014 07:54:00 09/12/2014 11:16:00 DIS Emergency Anu Dumont MD [facility] ED abd pain , nausea [id number] 04/01/2014 09:22:00 04/01/2014 23:59:00 DIS Outpatient Adonis Gonzalez Momo [facility] E21 Derm NPV CHRONIC RASH ON SCALP [id number] 08/25/2014 11:26:00 Document Registration [id number] 07/13/2014 11:00:00 Document Registration [id number] 06/30/2014 14:31:00 Document Registration [id number] 03/17/2014 14:29:00 Document Registration [id number] 09/11/2017 16:20:00 09/11/2017 23:59:59 CLS Outpatient [facility] [id number] 12/31/2012 18:35:00 12/31/2012 20:13:00 DIS Emergency Srinivas SARMIENTO, Viktoriya Rodríguez [facility] W.EDS [id number] 12/13/2011 05:46:00 12/13/2011 12:50:00 DIS Outpatient Dragan SARMIENTO, [facility] W.OPRA [id number] 12/11/2011 08:18:00 12/11/2011 08:18:00 DIS Outpatient Dragan SARMIENTO, [facility] W.POA [id number] 11/29/2011 00:00:00 11/29/2011 00:00:00 CAN Outpatient Dragan SARMIENTO, [facility] W.OPRA [id number] 2013 09:50:00 2013 23:59:59 CLS Outpatient [id number] 03/24/2013 18:07:00 03/24/2013 19:45:00 DIS Emergency Carmita SARMIENTO, Alexey Cherry [facility] on [facility] [id number] 03/15/2013 11:18:00 03/15/2013 11:46:00 DIS Emergency Michael Carbajal DO [facility] on [facility] [id number] 04/04/2012 23:56:00 04/05/2012 01:29:00 DIS Emergency German Grimaldo MD [facility] on [facility]
--- OUTSIDE RECORDS SUMMARY | 2017-11-10 18:05 | XMS REPORT | Continuity of Care Document ---
Author Author Analisa Higuera MA Ambulatory Address Unknown Phone Unavailable Care Team Providers Care Ad Setter Name Role Phone Abebe Bentley PP Unavailable Payers Payer name Insurance type Covered constitution party ID Authorization(s) Unknown Problems Condition Effective Dates (start - stop) Clinical Status Hypothyroidism - *Chronic Skin lesion - *Chronic Ingrown toenail - *Chronic Headache - Persistent Allergic rhinitis, cause unspecified - *Chronic Pain in joint involving shoulder region - *Acute Pain in joint involving shoulder region - Persistent Acute suppurative otitis media without spontaneous rupture of eardrum 2012 - *Acute Hypothyroidism - *Chronic Ear pain - *Chronic Finger injury - *Acute Migraine - *Acute Sinusitis, Acute - *Acute Pain in joint involving shoulder region - *Acute Shoulder pain - *Acute Family History Family Member Diagnosis Age At Onset Status Maternal grandmother (Unknown) Cancer - throat Yes Maternal grandfather (Unknown) Cancer - lung Yes Maternal grandfather (Unknown) CAD Yes Father (Unknown) Thyroid disease Yes Maternal grandmother (Unknown) Diabetes Yes Paternal grandfather (Unknown) COPD Yes Maternal grandfather (Unknown) Hypertension Yes Maternal grandmother (Unknown) Hypertension Yes Father (Unknown) Hyperlipidemia Yes Mother (Unknown) Hyperlipidemia Yes Social History Social History Element Description Quantity Unknown Allergies, Adverse Reactions, Alerts Substance Reaction Severity Status LATEX Unknown AMOXICILLIN Unknown CEPHALEXIN MONOHYDRATE Unknown ZIPRASIDONE HCL Unknown ZIPRASIDONE MESYLATE Unknown PENICILLIN G Unknown Medications Medication Instructions Dosage Effective Dates (start - stop) Status Lamictal 200 mg tablet take 1 tablet (200MG) by oral route every day 200 MG - Active [place] 10 mg-325 mg tablet take 1 tablet by oral route every 4 - 6 hours as needed for pain 0 - Active prazosin 1 mg capsule take 1 capsule (1MG) by oral route 3 times every day 1 MG - Active Cymbalta 30 mg capsule,delayed release take 1 Capsule (30MG) by oral route every day 30 MG - Active CONZIP (unknown strength) take 1 - 2 Capsule by oral route every day - Active Flexeril 5 mg tablet take 1 tablet by oral route 3 times every day 5 MG - Active Nizoral 2 % shampoo apply by topical route every day to the affected area(s) , lather, leave in place for 5 minutes, and then rinse off with water 0 - Active montelukast 10 mg tablet take 1 tablet (10MG) by oral route every day in the evening 10 MG - Active omeprazole 40 mg capsule,delayed release take 1 capsule (40MG) by oral route every day before a meal 40 MG - Active Imitrex 50 mg tablet take 1 Tablet (50MG) by oral route 50 MG - Active Omnaris 50 mcg nasal spray spray 2 spray (100MCG) by intranasal route every day in each nostril 100 MCG - Active levothyroxine 125 mcg tablet take 1 tablet (125MCG) by oral route every day 125 MCG - Active Immunizations Vaccine Date Status Comments Unknown Results Test Name Date and Time Measure Units Reference Range Abnormal Flag Comments Panel Description: [facility] TSH 10:15:00 4.62 uIU/mL 0.35-4.94 Testing performed at [facility] Reference Lab [address] [facility] [address] Evaluation Manager Marc Paez MD Vital Signs Date / Time: Height Weight Pulse Rate Blood Pressure Temperature /09:50:00 69.25 in 269.80 lbs 111 /min 118/84 mm[Hg] Procedures Procedure Date OFFICE/OUTPATIENT VISIT, EST Encounters Encounter Location Date Patient Visit [facility] Patient Visit [facility] Patient Visit [facility] Patient Visit [facility] Patient Visit [facility] Patient Visit [facility] Patient Visit [facility] Patient Visit [facility] Patient Visit [facility] Patient Visit [facility] Patient Visit [facility] Patient Visit [facility] Patient Visit [facility] Patient Visit [facility] Patient Visit [facility] Advance Directives Directive Effective Date Unknown
[2017-11-10] MEDS ORDERED: HYDROcodone/APAP 7.5 MG/325 MG (LORTAB, LORCET PLUS) TABLET PO STA (18:36)
[2017-11-10] MEDS ORDERED: OMEP40CA36 PO (18:37)
[2017-11-10] MEDS ORDERED: BACL10TA PO (18:37)
[2017-11-10] MEDS ORDERED: LEVO175T5 PO (18:37)
[2017-11-10] MEDS ORDERED: DULO60CA58 PO (18:37)
[2017-11-10] MEDS ORDERED: IBUP-1780 PO (18:37)
[2017-11-10] MEDS ORDERED: AMIT25TA9 PO (18:37)
[2017-11-10] MEDS ORDERED: LAMO150T3 PO (18:37)
[2017-11-10] MEDS ORDERED: DIPH25TA29 PO (18:37)
[2017-11-10] MEDS ORDERED: MONT10TA21 PO (18:37)
--- NOTE | 2017-11-10 18:58 | Diagnostic Imaging Report ---
INDICATION: Low back pain. History of injury approximately one year ago. TECHNIQUE: AP, lateral and spot imaging of the lumbar spine. CORRELATION STUDY: None. FINDINGS: Some straightening of the lumbar lordotic curvature. Lumbar vertebral body heights and disc spaces are overall maintained. There is minimal endplate lipping at the L4 and L5 level. IMPRESSION: No radiographic evidence for acute bony abnormality of the lumbar spine. Some straightening could be owing to position versus splinting and/or spasm. Alignment otherwise anatomic. Dictated by: Dictated on workstation # [id number]
[2017-11-10] MEDS ORDERED: ACHD5005 PO (19:04)
--- NOTE | 2017-11-10 19:08 | ED Back Pain ---
General Chief Complaint: Back Problems Stated Complaint: BACK PAIN Nursing Triage Note: PT REPORTS FLARE OF DEG DISC DISEASE STARTING LAST NIGHT. HE THINKS THE PAIN IS AROUND L1, L2. Nursing Sepsis Screen: No Definite Risk History of Present Illness Date Seen by Provider: Nov 10, 2017 Time Seen by Provider: 18:15 Initial Comments 37-year-old male presents for acute on chronic low back pain. He reports over one year ago he was lifting a case and felt a slip in his back. Since then he has had intermittent low back pain with left-sided sciatica. He reports last evening at approximately 8 PM he was lying in bed when he had the same sensation. He denies any bowel or bladder retention or incontinence. He has been taking ibuprofen intermittently and baclofen. He's had no previous spine surgeries. He is disabled for PTSD. Location: Lumbar Spine, Paraspinous Muscles Timing/Duration: 12-24 Hours Severity: Moderate Pain/Injury Location: None Radiation: Upper Legs Method of Injury: Unknown (left) Modifying Factors: Improves With Pain Medication, Improves With Rest Associated Symptoms: muscle spasms, lower back pain; No loss of bladder control , No loss of bowel control Allergies and Home Medications Allergies Coded Allergies: Latex (Unverified Allergy, Mild, 12/13/10) Penicillins (Unverified Allergy, Mild, 12/13/10) Home Medications Amitriptyline HCl 25 Mg Tablet, 25 MG PO HS, (Reported) Baclofen 10 Mg Tablet, 10 MG PO TID PRN for SPASMS, (Reported) Diphenhydramine HCl 25 Mg Tablet, 25 MG PO HS, (Reported) Duloxetine HCl 60 Mg Capsule.dr, 60 MG PO DAILY, (Reported) Hydrocodone Bit/Acetaminophen 1 Tab Tab, 1 EACH PO Q6H PRN for PAIN Prescribed by: IVELISSE OROZCO on 11/10/17 190 Ibuprofen 800 Mg Tablet, 800 MG PO Q8H PRN for PAIN, (Reported) Lamotrigine 150 Mg Tablet, 300 MG PO DAILY, (Reported) Levothyroxine Sodium 175 Mcg Tablet, 175 MCG PO DAILY, (Reported) Montelukast Sodium 10 Mg Tablet, 10 MG PO DAILY, (Reported) Omeprazole 40 Mg Capsule.dr, 40 MG PO DAILY, (Reported) Patient Home Medication List Home Medication List Reviewed: Yes Constitutional: no symptoms reported, see HPI Musculoskeletal: see HPI, back pain All Other Systems Reviewed Negative Unless Noted: Yes Past Obqwcyc-Vpjrws-Zalfmk Hx Past Med/Social Hx: Reviewed Nursing Past Med/Soc Hx Patient Social History Alcohol Use: Denies Use Recreational Drug Use: No Smoking Status: Current Everyday Smoker Type Used: Electronic/Vapor Recent Foreign Travel: No Contact w/Someone Who Travel: No Recent Infectious Disease Expo: No Recent Hopitalizations: No Past Medical History Surgeries: Yes (HERNIA REPAIR, KNEE SCOPE, DENTAL) Orthopedic Respiratory: No Cardiac: No Neurological: No Gastrointestinal: Yes Gastroesophageal Reflux Musculoskeletal: Yes Degenerate Disk Disease Endocrine: Yes Hypothyroidsim Psychosocial: Yes Anxiety, PTSD Integumentary: No Physical Exam Vital Signs Vital Signs - First Documented 11/10/17 18:11 Temp 98.1 Pulse 103 Resp 20 B/P (MAP) 134/91 (105) Pulse Ox 99 O2 Delivery Room Air Capillary Refill : Less Than 3 Seconds Height, Weight, BMI Height: 5'10.00" Weight: 270lbs. oz. 122.721119rv; BMI Method:Stated General Appearance: No Apparent Distress, WD/WN Neck: Full Range of Motion, Normal Inspection, Supple Cardiovascular: Regular Rate, Rhythm, No Edema, No Gallop, No Murmur Respiratory: Chest Non Tender, Lungs Clear, Normal Breath Sounds, No Respiratory Distress Gastrointestinal: Normal Bowel Sounds, No Pulsatile Mass, Non Tender, Soft; No Distended, No Guarding, No Hepatomegaly Back: Normal Inspection, Decreased Range of Motion (secondary to pain), Muscle Spasm, Vertebral Tenderness (upper lumbar), Other (Power V/V L4-S1. Neg SLR. ) Extremity: Normal Capillary Refill, Normal Inspection, Normal Range of Motion, No Pedal Edema Neurologic/Psychiatric: Alert, Oriented x3, No Motor/Sensory Deficits, Abnormal Gait (antalgic); No Motor Weakness, No Sensory Deficit Skin: Normal Color, Warm/Dry Progress/Results/Core Measures Results/Orders My Orders Orders - IVELISSE OROZCO Lumbar Spine - 2-3 Views (11/10/17 18:31) Hydrocodone/Apap 7.5/325 Tab (Lortab 7. (11/10/17 18:36) Vital Signs/I&O 11/10/17 18:11 Temp 98.1 Pulse 103 Resp 20 B/P (MAP) 134/91 (105) Pulse Ox 99 O2 Delivery Room Air Blood Pressure Mean: 105 Progress Progress Note : Time: 18:15 Progress Note Initial evaluation completed, recommended hydrocodone/APAP 7.5/325 mg for pain. We'll obtain x-rays of the lumbar spine and reevaluation. K Tracs negative. 1899 x-ray show no degenerative disc disease and no acute bony abnormalities. Results discussed with patient and his family. 1914 discharge instructions and return precautions reviewed with the patient. All questions answered. Diagnostic Imaging Diagonstic Imaging: Xray Plain Films/CT/US/NM/MRI: other Comments VIA [facility] [place], [place] NAME: ZACH SKY [facility] REC#: [id number] PT STATUS: REG ER : 1980 PHYSICIAN: IVELISSE OROZCO ADMIT DATE: 11/10/17/ER Draft Date of Exam:11/10/17 LUMBAR SPINE - 2-3 VIEWS INDICATION: Low back pain. History of injury approximately one year ago. TECHNIQUE: AP, lateral and spot imaging of the lumbar spine. CORRELATION STUDY: None. FINDINGS: Some straightening of the lumbar lordotic curvature. Lumbar vertebral body heights and disc spaces are overall maintained. There is minimal endplate lipping at the L4 and L5 level. IMPRESSION: No radiographic evidence for acute bony abnormality of the lumbar spine. Some straightening could be owing to position versus splinting and/or spasm. Alignment otherwise anatomic. Dictated on workstation # [id number] Dict: 11/10/171849 Trans: 11/10/171856 [facility] [id number] Interpreted by: LIDIA TORRE DO Electronically signed by: Reviewed: Reviewed by Me Departure Impression Primary Impression: Low back pain Qualified Codes: M54.42 - Lumbago with sciatica, left side Disposition: 01 HOME, SELF-CARE Condition: Improved Departure-Patient Inst. Decision time for Depature: 19:00 Referrals: [facility] (PCP/Family) Primary Care Physician Patient Instructions: Low Back Pain (DC) Add. Discharge Instructions: Continue to take ibuprofen 600 mg every 8 hours. Continue to use your baclofen for muscle relaxant. Use the hydrocodone/Tylenol for extreme pain only, every 6 hours. I encouraged walking, 5-10 minutes every few hours while awake. Apply ice to your lower back. Follow-up with your primary care provider in 2-3 days if symptoms are not improving or worsen. Return to emergency department if symptoms worsen significantly despite medication, bowel or bladder leakage or retention, or new injuries. All discharge instructions reviewed with patient and/or family. Voiced understanding. Scripts Hydrocodone Bit/Acetaminophen (Hydrocodone/Acetaminophen 5/325mg Tablet) 1 Tab Tab 1 EACH PO Q6H PRN for PAIN, #12 TAB 0 Refills Prov: IVELISSE OROZCO 11/10/17 IVELISSE OROZCO Nov 10, 2017 19:08
[2017-11-10 19:20] VITALS: BP 132/91
== END 2017-11-10 19:20 | disposition home or self-care (01) ==
LOC: EDUNIT# 17:58 → ER 17:59
DX: M54.5 Low back pain (principal); F43.10 Post-traumatic stress disorder, unspecified; F17.210 Nicotine dependence, cigarettes, uncomplicated; K21.9 Gastro-esophageal reflux disease without esophagitis; E03.9 Hypothyroidism, unspecified; F41.9 Anxiety disorder, unspecified; Z98.890 Other specified postprocedural states; Z91.040 Latex allergy status; Z88.0 Allergy status to penicillin; X50.0XXA Overexertion from strenuous movement or load, initial encounter
CPT/HCPCS: 72100

== ENCOUNTER 2018-01-13 06:20 | Emergency (ER) | payer MEDICARE ==
[~2018-01-13] VITALS: Ht 177.8 cm; Wt 122.5 kg
[~2018-01-13 06:20] MED LIST changes: +ACHD5005 PO; +AMIT25TA9 PO; +BACL10TA PO; +DIPH25TA29 PO; +DULO60CA58 PO; +IBUP-1780 PO; +LAMO150T3 PO; +LEVO175T5 PO; +MONT10TA21 PO; +OMEP40CA36 PO
--- OUTSIDE RECORDS SUMMARY | 2018-01-13 06:26 | XMS REPORT ---
Author Author PAULINA ILENE Organization [facility] Address [address] [place] [address] Care Team Providers Care Skip Pit Worker Name Role Phone VITALIYMAXIM HARTMANNA Unavailable PROBLEMS Type Condition ICD9-CM Code CHT45-RH Code Onset Dates Condition Status SNOMED Code Problem Bipolar disorder, current episode mixed, mild F31.61 Active 836117120 Problem PTSD (post-traumatic stress disorder) F43.10 Active 97754911 ALLERGIES No Information ENCOUNTERS Encounter Location Date Diagnosis [place] [id number] [place] [address] Aug, Bipolar disorder, current episode mixed, mild F31.61 and PTSD (post-traumatic stress disorder) F43.10 [facility] [id number] [place] [phone] Jun, Bipolar disorder, current episode mixed, mild F31.61 and PTSD (post-traumatic stress disorder) F43.10 [place] [id number] [place] [address]- [address] Jun, Bipolar disorder, current episode mixed, mild F31.61 and PTSD (post-traumatic stress disorder) F43.10 [facility] [id number] [place] [address]- 6[address] Mar, Bipolar disorder, current episode mixed, mild F31.61 and PTSD (post-traumatic stress disorder) F43.10 [place] [address] [address] Mar, Bipolar disorder, current episode mixed, mild F31.61 and PTSD (post-traumatic stress disorder) F43.10 [place] [id number] [place] [address] Mar, [facility] [address] [facility] [id number] [address] Mar, Bipolar disorder, current episode mixed, mild F31.61 and PTSD (post-traumatic stress disorder) F43.10 [facility] [address] [facility] [id number] [address] Dec, [facility] [address] [facility] [id number] [address] Dec, [facility] [address] [facility] [id number] [address] Dec, IMMUNIZATIONS No Known Immunizations SOCIAL HISTORY Never Assessed REASON FOR VISIT f/u LEYDI-JOAQUIN PLAN OF CARE Activity Details Follow Up 4 Weeks Reason: VITAL SIGNS Weight 156.53 lbs 2017-09-11 Heart Rate 104 bpm 2017-09-11 Respiratory Rate 20 2017-09-11 Blood pressure systolic 126 mmHg 2017-09-11 Blood pressure diastolic 82 mmHg 2017-09-11 MEDICATIONS Medication Instructions Dosage Frequency Start Date End Date Duration Status Amitriptyline HCl 25 MG Orally Once a day 1 tablet 24h Aug, 30 day(s) Active Duloxetine HCl 60 MG Orally Once a day 1 capsule 24h 30 days Active Cymbalta 30 MG Orally Once a day 1 capsule 24h Aug, 30 day(s) Active Ibuprofen 800 MG Orally Three times a day 1 tablet with food or milk as needed 8h Active Singulair 10 MG Orally Once a day 1 tablet in the evening 24h Active Imitrex 50 MG Orally Twice a day 1 tablet as needed 12h Active Synthroid 150 MG Orally Once a day 1 tablet on an empty stomach in the morning 24h Active Lamictal 150 MG Orally Once a day 2 tablet 24h Active Omeprazole 40 MG Orally Once a day 1 capsule 24h Active Baclofen 10 mg Orally Once a day 1 tablet with food or milk 24h Active RESULTS No Results PROCEDURES Procedure Date Ordered Result Body Site [facility] VISIT ESTABLISHED PATIENT September 11, 2017 INSTRUCTIONS MEDICATIONS ADMINISTERED No Known Medications MEDICAL (GENERAL) HISTORY Type Description Date Medical History several concussions, last one 2014 Medical History obesity Medical History hypothyroidism Medical History chronic pain Surgical History cholecystectomy Surgical History tonsillectomy Surgical History wisdom teeth extraction Surgical History hernia repair Surgical History left knee arthroscopy Hospitalization History [facility] depression, SI 2002
--- OUTSIDE RECORDS SUMMARY | 2018-01-13 06:26 | XMS REPORT ---
Author Author PAULINA ILENE Organization [facility] Address [address] [place] [address] Care Team Providers Care Behavioral Scientist Name Role Phone VITALIYMARY KATE ILENE Unavailable PROBLEMS Type Condition ICD9-CM Code IND65-FQ Code Onset Dates Condition Status SNOMED Code Problem Bipolar disorder, current episode mixed, mild F31.61 Active 209580367 Problem PTSD (post-traumatic stress disorder) F43.10 Active 05335200 ALLERGIES No Information ENCOUNTERS Encounter Location Date Diagnosis [place] [id number] [place] [address] Feb, [facility] [id number] [place] [address] Dec, Bipolar disorder, current episode mixed, mild F31.61 and PTSD (post-traumatic stress disorder) F43.10 [facility] [id number] [place] [address] 6[address] Nov, Bipolar disorder, current episode mixed, mild F31.61 and PTSD (post-traumatic stress disorder) F43.10 [place] [address] [place] [address] Aug, Bipolar disorder, current episode mixed, mild F31.61 and PTSD (post-traumatic stress disorder) F43.10 [facility] [address] [place] [address] 33642- 1735 Jun, Bipolar disorder, current episode mixed, mild F31.61 and PTSD (post-traumatic stress disorder) F43.10 [place] [address] [place] [address]93- [address] Jun, Bipolar disorder, current episode mixed, mild F31.61 and PTSD (post-traumatic stress disorder) F43.10 [place] [address] [address] Mar, Bipolar disorder, current episode mixed, mild F31.61 and PTSD (post-traumatic stress disorder) F43.10 [place] [address] [place] [address] 90197- [address]296 Mar, Bipolar disorder, current episode mixed, mild F31.61 and PTSD (post-traumatic stress disorder) F43.10 [place] [id number] [place] [address] 18106- 5833 Mar, [place] [id number] [place] [address] 939785- [address] Mar, Bipolar disorder, current episode mixed, mild F31.61 and PTSD (post-traumatic stress disorder) F43.10 [place] [id number] [place] [address] Dec, [place] [id number] [place] [address] 25[address]- 5927 Dec, [place] [id number] [place] [address] 23183- 6[address] Dec, IMMUNIZATIONS No Known Immunizations SOCIAL HISTORY Never Assessed REASON FOR VISIT BH f/u-AB/JOAQUIN PLAN OF CARE Activity Details Follow Up 3 Months Reason: VITAL SIGNS Weight 276 lbs 2017-12-27 Heart Rate 107 bpm 2017-12-27 Respiratory Rate 20 2017-12-27 Blood pressure systolic 122 mmHg 2017-12-27 Blood pressure diastolic 96 mmHg 2017-12-27 MEDICATIONS Medication Instructions Dosage Frequency Start Date End Date Duration Status Cymbalta 30 MG Orally Once a day 1 capsule 24h Aug, 30 days Active Amitriptyline HCl 50 MG Orally Once a day-bedtime 1 tablet Active Duloxetine HCl 60 MG Orally Once a day 1 capsule 24h 30 days Active Synthroid 175 MCG Orally Once a day 1 tablet on an empty stomach in the morning 24h Active Ibuprofen 800 MG Orally Three times a day 1 tablet with food or milk as needed 8h Active Singulair 10 MG Orally Once a day 1 tablet in the evening 24h Active Lamictal 150 mg Orally Once a day 2 tablet 24h Active Imitrex 50 MG Orally Twice a day 1 tablet as needed 12h Active Baclofen 10 mg Orally Once a day 1 tablet with food or milk 24h Active Omeprazole 40 MG Orally Once a day 1 capsule 24h Active RESULTS No Results PROCEDURES Procedure Date Ordered Result Body Site [facility] VISIT ESTABLISHED PATIENT Dec 27, 2017 INSTRUCTIONS MEDICATIONS ADMINISTERED No Known [...]
--- OUTSIDE RECORDS SUMMARY | 2018-01-13 06:26 | XMS REPORT ---
Author Author PAULINA ILENE Organization [facility] Address [address] [place] [address] Care Team Providers Care Injection Maintenance Technician Name Role Phone VITALIYMARY KATE ILENE Unavailable PROBLEMS Type Condition ICD9-CM Code MPS99-GH Code Onset Dates Condition Status SNOMED Code Problem Bipolar disorder, current episode mixed, mild F31.61 Active 800101068 Problem PTSD (post-traumatic stress disorder) F43.10 Active 87374744 ALLERGIES No Information ENCOUNTERS Encounter Location Date Diagnosis [place] [id number] [place] [address] Dec, [facility] [id number] [place] [address] 05542- [address]33 Nov, Bipolar disorder, current episode mixed, mild F31.61 and PTSD (post-traumatic stress disorder) F43.10 [facility] [id number] [place] [address] 89939- [address]69 Aug, Bipolar disorder, current episode mixed, mild F31.61 and PTSD (post-traumatic stress disorder) F43.10 [place] [address] [place] [address] 28601- 7765 Jun, Bipolar disorder, current episode mixed, mild F31.61 and PTSD (post-traumatic stress disorder) F43.10 [facility] [address] [place] [address] 23756- 9429 Jun, Bipolar disorder, current episode mixed, mild F31.61 and PTSD (post-traumatic stress disorder) F43.10 [place] [address] [place] [address] 61693- 7350 Mar, Bipolar disorder, current episode mixed, mild F31.61 and PTSD (post-traumatic stress disorder) F43.10 [place] [address] [address] Mar, Bipolar disorder, current episode mixed, mild F31.61 and PTSD (post-traumatic stress disorder) F43.10 [place] [address] [address] Mar, [place] [id number] [place] [phone]- [address] Mar, Bipolar disorder, current episode mixed, mild F31.61 and PTSD (post-traumatic stress disorder) F43.10 [place] [id number] [place] [address] 440808- 6712 Dec, [place] [id number] [place] [address] 78165- 9545 Dec, [place] [id number] [place] [address] 84738- 2702 Dec, IMMUNIZATIONS No Known Immunizations SOCIAL HISTORY Never Assessed REASON FOR VISIT Psychiatric f/u PLAN OF CARE Activity Details Follow Up 4 Weeks Reason: VITAL SIGNS Weight 277.5 lbs 2017-11-28 Heart Rate 98 bpm 2017-11-28 Respiratory Rate 16 2017-11-28 Blood pressure systolic 130 mmHg 2017-11-28 Blood pressure diastolic 90 mmHg 2017-11-28 MEDICATIONS Medication Instructions Dosage Frequency Start Date End Date Duration Status Synthroid 175 MCG Orally Once a day 1 tablet on an empty stomach in the morning 24h Active Omeprazole 40 MG Orally Once a day 1 capsule 24h Active Baclofen 10 mg Orally Once a day 1 tablet with food or milk 24h Active Lamictal 150 MG Orally Once a day 2 tablet 24h Active Ibuprofen 800 MG Orally Three times a day 1 tablet with food or milk as needed 8h Active Singulair 10 MG Orally Once a day 1 tablet in the evening 24h Active Duloxetine HCl 60 MG TAKE ONE CAPSULE BY MOUTH ONCE DAILY Active Imitrex 50 MG Orally Twice a day 1 tablet as needed 12h Active Amitriptyline HCl 50 MG Orally Once a day-bedtime 1 tablet 30 days Active Cymbalta 30 MG Orally Once a day 1 capsule 24h Aug, 30 days Active RESULTS No Results PROCEDURES Procedure Date Ordered Result Body Site [facility] VISIT ESTABLISHED PATIENT Nov 28, 2017 INSTRUCTIONS MEDICATIONS ADMINISTERED No Known [...]
--- OUTSIDE RECORDS SUMMARY | 2018-01-13 06:27 | XMS REPORT | Continuity of Care Document ---
Author Author [facility] Organization [facility] Address Unknown Phone Unavailable Allergies Active Description Code Type Severity Reaction Onset Reported/Identified Relationship to Patient Clinical Status Yes latex [id number] Drug Allergy Mild N/A 12/13/2010 Yes Penicillins [id number] Drug Allergy Mild N/A 12/13/2010 Yes Latex Drug Allergy Mild Pruritus 10/23/2011 [...] Final 311 DEPRESSIVE DISORDER NEC 04/04/2012 German Grimaldo MD Final 724.5 BACKACHE NOS 04/04/2012 German Grimaldo MD Final 786.50 CHEST PAIN NOS 03/15/2013 Michael Carbajal DO Final 244.9 HYPOTHYROIDISM NOS 03/15/2013 Michael Carbajal DO Final 382.9 OTITIS MEDIA NOS 03/15/2013 Michael Carbajal DO Admitting 388.70 OTALGIA NOS 03/24/2013 Cramita MD, Alexey S Final 296.80 BIPOLAR DISORDER NOS 03/24/2013 Carmita SARMIENTO, Alexey Cherry Final 305.1 TOBACCO USE DISORDER 03/24/2013 Carmita SARMIENTO, Alexey Cherry Final 309.81 POSTTRAUMATIC STRESS DIS 03/24/2013 Carmita SARMIENTO, Alexey Cherry Final 380.10 INF OTITIS EXTERNA NOS 03/24/2013 Alexey Vizcarra MD Admitting 388.70 OTALGIA NOS 09/14/2014 Tim SARMIENTO, Anu Rodríguez Final 305.1 TOBACCO USE DISORDER 09/14/2014 Anu Dumont MD Final 592.0 CALCULUS OF KIDNEY 09/14/2014 Anu Dumont MD Reason 789.09 ABDOMINAL PAIN, OTHER SPECIFIED SITE; MULTIPLE SITES 11/10/2017 PAM, IVELISSE CREDENTIALING SPECIALIST Ot E03.9 HYPOTHYROIDISM, UNSPECIFIED 11/10/2017 PAM, IVELISSE CREDENTIALING SPECIALIST Ot F17.210 NICOTINE DEPENDENCE, CIGARETTES, UNCOMPL 11/10/2017 PAM, IVELISSE CREDENTIALING SPECIALIST Ot F41.9 ANXIETY DISORDER, UNSPECIFIED 11/10/2017 PAM, IVELISSE CREDENTIALING SPECIALIST Ot F43.10 POST-TRAUMATIC STRESS DISORDER, UNSPECIF 11/10/2017 PAM, IVELISSE CREDENTIALING SPECIALIST Ot K21.9 GASTRO-ESOPHAGEAL REFLUX DISEASE WITHOUT 11/10/2017 PAM, IVELISSE CREDENTIALING SPECIALIST Ot M54.5 LOW BACK PAIN 11/10/2017 PAM, IVELISSE CREDENTIALING SPECIALIST Ot X50.0XXA OVEREXERTION FROM STRENUOUS MOVEMENT OR 11/10/2017 PAM, IVELISSE CREDENTIALING SPECIALIST Ot Z88.0 ALLERGY STATUS TO PENICILLIN 11/10/2017 PAM, IVELISSE CREDENTIALING SPECIALIST Ot Z91.040 LATEX ALLERGY STATUS 11/10/2017 PAM, IVELISSE CREDENTIALING SPECIALIST Ot Z98.890 OTHER SPECIFIED POSTPROCEDURAL STATES 11/13/2017 PAM, IVELISSE CREDENTIALING SPECIALIST Ot E03.9 HYPOTHYROIDISM, UNSPECIFIED 11/13/2017 PAM, IVELISSE CREDENTIALING SPECIALIST Ot F17.210 NICOTINE DEPENDENCE, CIGARETTES, UNCOMPL 11/13/2017 PAM, IVELISSE CREDENTIALING SPECIALIST Ot F41.9 ANXIETY DISORDER, UNSPECIFIED 11/13/2017 PAM, IVELISSE CREDENTIALING SPECIALIST Ot F43.10 POST-TRAUMATIC STRESS DISORDER, UNSPECIF 11/13/2017 PAM, IVELISSE CREDENTIALING SPECIALIST Ot K21.9 GASTRO-ESOPHAGEAL REFLUX DISEASE WITHOUT 11/13/2017 PAM, IVELISSE CREDENTIALING SPECIALIST Ot M54.5 LOW BACK PAIN 11/13/2017 IVELISSE OROZCO Ot X50.0XXA OVEREXERTION FROM STRENUOUS MOVEMENT OR 11/13/2017 IVELISSE OROZCO Ot Z88.0 ALLERGY STATUS TO PENICILLIN 11/13/2017 IVELISSE OROZCO Ot Z91.040 LATEX ALLERGY STATUS 11/13/2017 IVELISSE OROZCO Ot Z98.890 OTHER SPECIFIED POSTPROCEDURAL STATES Procedures There is no data. Results Test [...] Status Pt. Type Provider Facility Loc./Unit Complaint [id number] 09/12/2014 07:54:00 09/12/2014 11:16:00 DIS Emergency Tim SARMIENTO, Anu Rodríguez [facility] ED abd pain , nausea [id number] 11/10/2017 17:59:00 11/10/2017 19:20:00 DIS Emergency IVELISSE OROZCO [facility] ER BACK PAIN [id number] 04/01/2014 09:22:00 04/01/2014 23:59:00 DIS Outpatient Adonis Gonzalez [facility] E21 Derm NPV CHRONIC RASH ON SCALP [id number] 08/25/2014 11:26:00 Document Registration [id number] 07/13/2014 11:00:00 Document Registration [id number] 06/30/2014 14:31:00 Document Registration [id number] 03/17/2014 14:29:00 Document Registration [id number] 09/11/2017 16:20:00 09/11/2017 23:59:59 CLS Outpatient LUCY ZELAYA APRN [facility] [id number] 12/31/2012 18:35:00 12/31/2012 20:13:00 DIS Emergency Srinivas SARMIENTO, Viktoriya Rodríguez [facility] W.EDS [id number] 12/13/2011 05:46:00 12/13/2011 12:50:00 DIS Outpatient Dragan SARMIENTO, [facility] W.OPRA [id number] 12/11/2011 08:18:00 12/11/2011 08:18:00 DIS Outpatient Dragan SARMIENTO, [facility] W.POA [id number] 11/29/2011 00:00:00 11/29/2011 00:00:00 CAN Outpatient Dragan SARMIENTO, [facility] W.OPRA [id number] 2013 09:50:00 2013 23:59:59 CLS Outpatient [id number] 03/24/2013 18:07:00 03/24/2013 19:45:00 DIS Emergency Carmita SARMIENTO, Alexey Cherry [facility] on [facility] [id number] 03/15/2013 11:18:00 03/15/2013 11:46:00 DIS Emergency Michael Carbajal DO [facility] on [facility] [id number] 04/04/2012 23:56:00 04/05/2012 01:29:00 DIS Emergency Dillan SARMIENTO, German Sheth [facility] on [facility]
[2018-01-13] MEDS ORDERED: BENZ-13 PO (06:47)
--- NOTE | 2018-01-13 06:47 | ED Cough/URI ---
General Stated Complaint: COUGH/SORE THROAT/HARD TO BREATHE Source: patient, family Exam Limitations: no limitations History of Present Illness Date Seen by Provider: Jan 13, 2018 Time Seen by Provider: 06:35 Initial Comments Patient presents to the ER with a cough is been going on for the better part of 24 hours nonproductive. No history of asthma or COPD. Denies any wheezing stridor. He says is worse after he lays down. Has coughing fits every 10 minutes. He's tried ibuprofen with minimal relief of his cough. Allergies and Home Medications Allergies Coded Allergies: Latex (Unverified Allergy, Mild, 12/13/10) Penicillins (Unverified Allergy, Mild, 12/13/10) Home Medications Amitriptyline HCl 25 Mg Tablet, 25 MG PO HS, (Reported) Baclofen 10 Mg Tablet, 10 MG PO TID PRN for SPASMS, (Reported) Diphenhydramine HCl 25 Mg Tablet, 25 MG PO HS, (Reported) Duloxetine HCl 60 Mg Capsule.dr, 60 MG PO DAILY, (Reported) Hydrocodone Bit/Acetaminophen 1 Tab Tab, 1 EACH PO Q6H PRN for PAIN Prescribed by: IVELISSE OROZCO on 11/10/171903 Ibuprofen 800 Mg Tablet, 800 MG PO Q8H PRN for PAIN, (Reported) Lamotrigine 150 Mg Tablet, 300 MG PO DAILY, (Reported) Levothyroxine Sodium 175 Mcg Tablet, 175 MCG PO DAILY, (Reported) Montelukast Sodium 10 Mg Tablet, 10 MG PO DAILY, (Reported) Omeprazole 40 Mg Capsule.dr, 40 MG PO DAILY, (Reported) Patient Home Medication List Home Medication List Reviewed: Yes Review of Systems Review of Systems Constitutional: No chills, No diaphoresis, No fever; malaise EENTM: No ear discharge, No ear pain Respiratory: cough; No phlegm, No short of breath, No wheezing Cardiovascular: No Hx of Intervention, No palpitations Gastrointestinal: No abdominal pain, No constipation, No diarrhea, No nausea Genitourinary: No discharge, No dysuria Musculoskeletal: No back pain, No joint pain Skin: No pruritus, No rash Past [id number] Hx Patient Social History Alcohol Use: Denies Use Recreational Drug Use: No Smoking Status: Former Smoker Type Used: Electronic/Vapor Recent Foreign Travel: No Contact w/Someone Who Travel: No Recent Hopitalizations: No Past Medical History Surgeries: Yes (HERNIA REPAIR, KNEE SCOPE, DENTAL) Orthopedic Respiratory: No Cardiac: No Neurological: No Gastrointestinal: Yes Gastroesophageal Reflux Musculoskeletal: Yes Degenerate Disk Disease Endocrine: Yes Hypothyroidsim Psychosocial: Yes Anxiety, PTSD Integumentary: No Physical Exam Capillary Refill : Height: 5'10.00" Weight: 270lbs. oz. [phone]; BMI Method:Stated General Appearance: WD/WN, no apparent distress Eyes: Bilateral Eye Normal Inspection, Bilateral Eye PERRL, Bilateral Eye EOMI HEENT: PERRL/EOMI, normal ENT inspection, TMs normal, pharynx normal Neck: non-tender, full range of motion, supple, normal inspection Respiratory: chest non-tender, lungs clear, normal breath sounds, no respiratory distress, no accessory muscle use Cardiovascular: normal peripheral pulses, regular rate, rhythm Gastrointestinal: non tender, soft Progress/Results/Core Measures Suspected Sepsis SIRS Temperature: Pulse: Respiratory Rate: Blood Pressure / Mean: Results/Orders Vital Signs/I&O Capillary Refill : Progress Note : Time: 06:44 Progress Note Typical URI treatment plan Departure Impression Primary Impression: Viral upper respiratory tract infection with cough Disposition: HOME, SELF-CARE Condition: Stable Departure-Patient Inst. Decision time for Depature: 06:44 Referrals: [facility] (PCP/Family) Primary Care Physician Patient Instructions: Viral Upper Respiratory Infection, Adult (DC) Add. Discharge Instructions: Reduce or quit vaporising while you are sick. Use Tylenol and/or Motrin for the body aches and malaise. Take one tablet of Tessalon Perles every 6 hours as needed to help reduce the cough. Drink lots of fluids to help keep secretions moving along. Humidifiers and vapor rubs such as Vicks will also help. Wash her hands and use hand powerhouse oiler's frequently. Scripts Benzonatate (Tessalon Perle) 100 Mg Capsule 100 MG PO Q6H PRN for COUGH for 7 Days, #20 CAP 0 Refills Prov: MARICRUZ HORN 01/13/18 MARICRUZ HORN Jan 13, 2018 06:47
[2018-01-13 06:50] VITALS: BP 124/82
== END 2018-01-13 06:50 | disposition home or self-care (01) ==
LOC: EDUNIT# 06:20 → ER 06:21
DX: J06.9 Acute upper respiratory infection, unspecified (principal); K21.9 Gastro-esophageal reflux disease without esophagitis; E03.9 Hypothyroidism, unspecified; F41.9 Anxiety disorder, unspecified; F43.10 Post-traumatic stress disorder, unspecified; Z91.040 Latex allergy status; Z88.0 Allergy status to penicillin; Z87.891 Personal history of nicotine dependence; Z98.890 Other specified postprocedural states
CPT/HCPCS: 99282